=== PATIENT | female | born 1995 | race Caucasian/White ===

== ENCOUNTER 2022-09-29 23:50 | Emergency (ER) | payer SELFPAY ==
[~2022-09-29] VITALS: Ht 165.1 cm; Wt 70.0 kg
[2022-09-29 23:54] VITALS: BP 102/63; PULSE 66; RESP 20; TEMP 97.8; O2SAT 97
== END 2022-09-30 02:00 | disposition home or self-care (01) ==
LOC: ER 23:50
DX: R41.82 Altered mental status, unspecified (principal); T51.0X1A Toxic effect of ethanol, accidental (unintentional), initial encounter; Y92.89 Other specified places as the place of occurrence of the external cause
CPT/HCPCS: 99283